=== PATIENT | male | born 1975 | race Caucasian/White ===

== ENCOUNTER 2016-11-18 21:20 | Observation (INO) | payer BC, OTHER ==
[~2016-11-18] VITALS: Ht 177.8 cm; Wt 86.4 kg
[~2016-11-18 21:20] MED LIST: ALBU1AER9 INH; ASPCH81X PO; METO25TA31 PO
[2016-11-18] MEDS ORDERED: SODIUM CHLORIDE 0.9% 500ML 500 ML IV STA (21:38)
[2016-11-18] MEDS ORDERED: OPTIRAY 320 IV PRN (21:45)
[2016-11-18 21:48] LABS: BASO % 0.2 %; BASO ABS # 0.02 K/uL (0-0.2); COMPLETE YES; EOS % 0.4 %; HEMATOCRIT 44.5 % (42-52); IG% 0.1 %; LYMPH % 14.2 %; LYMPH ABS # 1.34 K/uL (1.2-3.4); MEAN CELL VOLUME 84.8 fL (80-100); MEAN CORPUSCULAR HEMOGLOBIN 30.5 pg (25-34); MEAN PLATELET VOLUME 9.1 fL (7.4-10.4); MONO % 4.4 %; NEUT % 80.7 %; PLATELET COUNT 319 K/uL (130-400); RED BLOOD COUNT 5.25 M/uL (4.7-6.1); WHITE BLOOD COUNT 9.46 K/uL (4.8-10.8)
--- NOTE | 2016-11-18 21:50 | DIAGNOSTIC IMAGING REPORT ---
CHEST ONE VIEW PORTABLE CLINICAL HISTORY: Chest pain. Atrial fibrillation. COMPARISON STUDY: Chest radiograph March 01, 2010. FINDINGS: Lung volumes are at the lower limits of normal. There is no consolidation or evidence of pulmonary edema. No pneumothorax or pleural effusion is identified. Cardiac size is normal. Mediastinal contours are normal. IMPRESSION: No acute cardiopulmonary findings. Electronically signed by: Jorge Greene M.D. 11/18/2016 9:48 PM Dictated Date/Time: 11/18/2016 9:47 PM
[2016-11-18 21:55] LABS: ISTAT CREATININE 0.9 mg/dl (0.6-1.3); ISTAT HEMOGLOBIN 15.6 g/dl (14.0-18.0); ISTAT IONIZED CALCIUM 1.19 mmol/l (1.12-1.32)
[2016-11-18 21:56] LABS: PARTIAL THROMBOPLASTIN RATIO 1.1; PROTHROMBIN TIME (PATIENT) 10.6 SECONDS (9.0-12.0)
[2016-11-18 22:10] LABS: ALT/SGPT 39 U/L (12-78); BLOOD UREA NITROGEN 13 mg/dl (7-18); BUN/CREATININE RATIO 11.5 (10-20); CALCIUM 9.5 mg/dl (8.5-10.1); CARBON DIOXIDE 21 mmol/L (21-32); CHLORIDE 109 mmol/L (98-107); GLUCOSE 149 mg/dl (70-99); MAGNESIUM 2.2 mg/dl (1.8-2.4); POTASSIUM 3.5 mmol/L (3.5-5.1); SODIUM 142 mmol/L (136-145)
[2016-11-18] MEDS ORDERED: METO25TA56 PO (22:15)
[2016-11-18] MEDS ORDERED: VNTHFA/IN INH (22:15)
[2016-11-18 22:19] LABS: ALKALINE PHOSPHATASE 76 U/L (45-117); AST/SGOT 26 U/L (15-37); CKMB/CK RATIO 0.6 (0-3.0)
--- NOTE | 2016-11-18 22:21 | DIAGNOSTIC IMAGING REPORT ---
CT ANGIOGRAPHY OF THE CHEST, PULMONARY EMBOLUS PROTOCOL CLINICAL HISTORY: Shortness of breath and chest pain. Atrial fibrillation. COMPARISON STUDY: Chest radiograph March 01, 2010 and March. TECHNIQUE: Following IV administration of 87 mL of Optiray-320, helical axial images of the chest were obtained utilizing the pulmonary embolus protocol. Maximal intensity projections and sagittal and coronal reformats were viewed on an independent 3D workstation. IV contrast was administered without complication. CT DOSE: 543.85 mGy.cm FINDINGS: No pulmonary emboli are identified. The size of the heart is normal. There is no pericardial effusion. There is no evidence of thoracic aortic dissection. No enlarged thoracic lymph nodes are present. The central airways are patent. Mild ground glass opacities suggest atelectasis. There is no consolidation to suggest pneumonia. No pneumothorax or pleural effusion is present. The bony thorax and upper abdomen are unremarkable. IMPRESSION: 1. No pulmonary emboli identified. 2. No acute intrathoracic findings. Electronically signed by: Jorge Greene M.D. 11/18/2016 10:19 PM Dictated Date/Time: 11/18/2016 10:12 PM
--- NOTE | 2016-11-19 00:38 | EMERGENCY ROOM VISIT NOTE ---
History First contact with patient: 21:26 Chief Complaint: CARDIAC ASSESSMENT Stated Complaint: IN A-FIB Nursing Triage Summary: Pt reports he felt his heart racing after dinner. Pt has history of Afib and felt like he was in it. Pt took Metoprolol and ASA. History of Present Illness The patient is a 41 year old male who presents to the Emergency Room with complaints of chest pain, palpitations or shortness of breath for the past few hours. Patient took an extra metoprolol. His racing heart has subsided. No recent stress test or echocardiogram. No alcohol today. She describes the pain as pressure, 3-10 throughout the chest. He is only on a baby aspirin for his atrial fibrillation. Patient denies fever, chills, cough, congestion, abdominal pain, numbness, tingling. He had one episode of vomiting and diarrhea that was nonbloody nonblack and tarry in nature. Review of Systems See HPI for pertinent positives & negatives. A total of 10 systems reviewed and were otherwise negative. Past Medical/Surgical History Medical Problems: (1) HTN (hypertension) Atrial fibrillation Family History Cancer Gallbladder disease Heart disease Hypertension Lung disease Social History Smoking Status: Never Smoker Marital Status: Housing Status: lives with significant other Occupation Status: employed Current/Historical Medications Scheduled Aspirin (Aspirin Chewable), 81 MG PO DAILY Metoprolol Tartrate (Lopressor) (Lopressor), 12.5 MG PO DAILY Scheduled PRN Albuterol Hfa (Ventolin Hfa), 22 PUFFS INH QID PRN for SOB/Wheezing Allergies Coded Allergies: Clindamycin (Verified Allergy, Severe, throat swelling, 09/04/16) Penicillins (Verified Allergy, Mild, UNKNOWN, 02/28/12) Sulfites (Unverified Allergy, Unknown, RASH, 09/04/16) Physical Exam Vital Signs Date Time Temp Pulse Resp B/P Pulse Ox O2 Delivery O2 Flow Rate FiO2 11/19/16 00:00 60 16 134/84 97 Room Air 11/18/16 22:43 71 16 122/84 94 Room Air 11/18/16 21:48 95 Room Air 11/18/16 21:40 96 11/18/16 21:33 95 Room Air 11/18/16 21:32 93 16 159/96 95 Room Air 11/18/16 21:30 95 Room Air 11/18/16 21:22 36.9 120 21 166/92 97 Room Air Physical Exam VITALS: Vitals are noted on the nurse's note and reviewed by myself. Vital signs stable. GENERAL: Pleasant male, in no acute distress, nondiaphoretic, well-developed well-nourished. SKIN: The skin was without rashes, erythema, edema, or bruising. There is no tenting of the skin. Capillary reflex less than 2 seconds. HEAD: Normocephalic atraumatic. EARS: External auditory canals clear, tympanic membranes pearly dee without erythema or effusion bilaterally. EYES: Pupils equal round and reactive to light and accommodation. Conjunctivae without injection, sclerae without icterus. Extraocular movements intact. NOSE: Patent, turbinates without inflammation or discharge. MOUTH: Mucous membranes moist. Pharynx without erythema or exudate. Uvula midline. Airway patent. Tongue does not deviate. NECK: Supple without nuchal rigidity. No lymphadenopathy. No thyromegaly. Cervical spine is nontender. No JVD. HEART: Regular rate and rhythm without murmurs gallops or rubs. LUNGS: Clear to auscultation bilaterally without wheezes, rales or rhonchi. No dullness to percussion. No retractions or accessory muscle use. ABDOMEN: Positive bowel sounds x 4. Normal tympanic percussion. Soft, nontender, without masses or organomegaly. Mancini sign negative. No guarding or rebound tenderness. MUSCULOSKELETAL: No muscle atrophy, erythema, or edema noted. NEURO: Patient was alert and oriented to person place and time. Normal sensation to light and sharp touch. No focal neurological deficits. Medical Decision & Procedures Laboratory Results 11/18/16 21:35 Red Blood Count 5.25, Mean Corpuscular Volume 84.8, Mean Corpuscular Hemoglobin 30.5, Mean Corpuscular Hemoglobin Concent 36.0, Mean Platelet Volume 9.1, Neutrophils (%) (Auto) 80.7, Lymphocytes (%) (Auto) 14.2, Monocytes (%) (Auto) 4.4, Eosinophils (%) (Auto) 0.4, Basophils (%) (Auto) 0.2, Neutrophils # (Auto) 7.63, Lymphocytes # (Auto) 1.34, Monocytes # (Auto) 0.42, Eosinophils # (Auto) 0.04, Basophils # (Auto) 0.02 11/18/16 21:35 Test 11/18/16 21:35 11/18/16 21:43 11/18/16 21:44 11/18/16 23:08 White Blood Count 9.46 K/uL (4.8-10.8) Red Blood Count 5.25 M/uL (4.7-6.1) Hemoglobin 16.0 g/dL (14.0-18.0) Hematocrit 44.5 % (42-52) Mean Corpuscular Volume 84.8 fL (80-100) Mean Corpuscular Hemoglobin 30.5 pg (25-34) Mean Corpuscular Hemoglobin Concent 36.0 g/dl (32-36) Platelet Count 319 K/uL (130-400) Mean Platelet Volume 9.1 fL (7.4-10.4) Neutrophils (%) (Auto) 80.7 % Lymphocytes (%) (Auto) 14.2 % Monocytes (%) (Auto) 4.4 % Eosinophils (%) (Auto) 0.4 % Basophils (%) (Auto) 0.2 % Neutrophils # (Auto) 7.63 K/uL (1.4-6.5) Lymphocytes # (Auto) 1.34 K/uL (1.2-3.4) Monocytes # (Auto) 0.42 K/uL (0.11-0.59) Eosinophils # (Auto) 0.04 K/uL (0-0.5) Basophils # (Auto) 0.02 K/uL (0-0.2) RDW Standard Deviation 39.0 fL (36.4-46.3) RDW Coefficient of Variation 12.7 % (11.5-14.5) Immature Granulocyte % (Auto) 0.1 % Immature Granulocyte # (Auto) 0.01 K/uL (0.00-0.02) Prothrombin Time 10.6 SECONDS (9.0-12.0) Prothromb Time International Ratio 1.0 (0.9-1.1) Activated Partial Thromboplast Time 28.5 SECONDS (21.0-31.0) Partial Thromboplastin Ratio 1.1 Est Creatinine Clear Calc Drug Dose 91.3 ml/min Estimated GFR () 96.1 Estimated GFR (Non- 82.9 BUN/Creatinine Ratio 11.5 (10-20) Calcium Level 9.5 mg/dl (8.5-10.1) Magnesium Level 2.2 mg/dl (1.8-2.4) Total Bilirubin 0.2 mg/dl (0.2-1) Direct Bilirubin < 0.1 mg/dl (0-0.2) Aspartate Amino Transf (AST/SGOT) 26 U/L (15-37) Alanine Aminotransferase (ALT/SGPT) 39 U/L (12-78) Alkaline Phosphatase 76 U/L (45-117) Total Creatine Kinase 101 U/L (39-308) Creatine Kinase MB 0.6 ng/ml (0.5-3.6) Creatine Kinase MB Ratio 0.6 (0-3.0) Total Protein 7.5 gm/dl (6.4-8.2) Albumin 4.6 gm/dl (3.4-5.0) Lipase 189 U/L (73-393) Thyroid Stimulating Hormone (TSH) 2.860 uIu/ml (0.300-4.500) Bedside D-Dimer 40 ng/mlFEU (0-450) Bedside Troponin I 0.000 ng/ml (0-0.045) Bedside Hemoglobin 15.6 g/dl (14.0-18.0) Bedside Hematocrit 46 % (42-52) Bedside Sodium 142 mEq/L (135-144) Bedside Potassium 3.5 mEq/L (3.3-5.0) Bedside Chloride 106 mEq/L (101-112) Bedside Total CO2 22 mEq/l (24-31) Anion Gap 18.0 mmol/L (16-25) Bedside Blood Urea Nitrogen 14 mg/dl (7-18) Bedside Creatinine 0.9 mg/dl (0.6-1.3) Bedside Glucose (other) 152 mg/dl (70-99) Bedside Ionized Calcium (Nova) 1.19 mmol/l (1.12-1.32) Medications Administered Medications (Trade) Dose Ordered Sig/Sachi Route Start Time Stop Time Status Last Admin Dose Admin Sodium Chloride (Nss 500ml) 500 ml @ 999 mls/hr Q31M STAT IV 11/18/16 21:38 11/18/16 22:08 DC 11/18/16 21:47 999 MLS/HR ED Course Prior records and ancillary studies reviewed in the EMR. Additional history obtained from []. Prior records/ancillary studies reviewed. Triage Nursing notes reviewed. Additional history obtained from family. The patient's history was concerning for chest pain. Differential diagnosis: Etiologies such as cardiac ischemia, aortic dissection, pulmonary embolism, pneumonia, pneumothorax, musculoskeletal, infections, pericarditis, myocarditis , esophageal rupture, gastrointestinal, as well as others were entertained. Physical examination: As above. ER treatment provided: IV fluids On reassessment the patient felt better. Diagnostic interpretation by me: The electrocardiogram was normal sinus, normal intervals, minimal ST depression in V3 and V4, normal axis, impression normal sinus rhythm with minimal ST depression in the anteroseptal leads interpreted by myself repeat EKG shows normal sinus interpreted by myself The labs revealed negative troponin. No leukocytosis Imaging studies: Chest x-ray as above CT ANGIOGRAPHY OF THE CHEST, PULMONARY EMBOLUS PROTOCOL CLINICAL HISTORY: Shortness of breath and chest pain. Atrial fibrillation. COMPARISON STUDY: Chest radiograph March 01, 2010 and March or 2016. TECHNIQUE: Following IV administration of 87 mL of Optiray-320, helical axial images of the chest were obtained utilizing the pulmonary embolus protocol. Maximal intensity projections and sagittal and coronal reformats were viewed on an independent 3D workstation. IV contrast was administered without complication. CT DOSE: 543.85 mGy.cm FINDINGS: No pulmonary emboli are identified. The size of the heart is normal. There is no pericardial effusion. There is no evidence of thoracic aortic dissection. No enlarged thoracic lymph nodes are present. The central airways are patent. Mild ground glass opacities suggest atelectasis. There is no consolidation to suggest pneumonia. No pneumothorax or pleural effusion is present. The bony thorax and upper abdomen are unremarkable. IMPRESSION: 1. No pulmonary emboli identified. 2. No acute intrathoracic findings. Electronically signed by: Jorge Greene M.D. 11/18/2016 10:19 PM Consultation: A consultation was placed with the hospitalist, Dr Gomes. The case was discussed and diagnostics were reviewed. The patient was evaluated in the ER for further treatment. Exam and history seem consistent with precordial chest pain with abnormal EKG. Patient will be evaluated by medicine for further evaluation and workup for his cardiac symptoms today. Negative CTA. Initial heart rate was 120 and then improved while in the ER without intervention. Negative troponin. Stable H&H. No leukocytosis. By the evaluation outlined above emergent etiologies such as aortic dissection , pulmonary embolism, pneumonia, pneumothorax, infections, pericarditis, myocarditis, gastrointestinal, as well as others were deemed relatively unlikely. The pt informed about the findings as listed above. All questions were answered and pleased with the treatment. case reviewed with my Attending Medical Decision As above Impression Primary Impression: Precordial chest pain Departure Information Dispostion Being Evaluated By Hospitalist Condition FAIR Referrals Santos Key M.D. (PCP) Patient Instructions My [facility]
[2016-11-19] MEDS ORDERED: LEVALBUTEROL/IPRATROPIUM NEB INH PRN (01:15)
[2016-11-19] MEDS ORDERED: ACETAMINOPHEN 325 MG TAB PO PRN (01:15)
[2016-11-19] MEDS ORDERED: NITROGLYCERIN 0.4 MG SL PER TAB CHARGE SL PRN (01:15)
[2016-11-19] MEDS ORDERED: ONDANSETRON INJ 2 MG/ML 2 ML VIAL IV PRN (01:15)
[2016-11-19] MEDS ORDERED: TRAMADOL HCL 50 MG TAB PO PRN (01:15)
[2016-11-19 01:30] VITALS: BP 126/80; PULSE 62; TEMP 36.7; O2SAT 95; Ht 177.8 cm; Wt 86.4 kg
[2016-11-19] MEDS ORDERED: LORAZEPAM 2 MG/ML 1 ML VIAL IV PRN (01:30)
[2016-11-19] MEDS ORDERED: METOPROLOL TARTRATE 25 MG TAB PO STA (01:37)
[2016-11-19] MEDS ORDERED: DOXYCYCLINE HYCLATE 100 MG CAP PO STA (01:38)
[2016-11-19] MEDS ORDERED: POTASSIUM CHLORIDE 10 MEQ TABCR PO STA (01:39)
[2016-11-19] MEDS ORDERED: IV FLUIDS COMPLETED PRN (01:45)
[2016-11-19] MEDS ORDERED: LACTATED RINGER'S 1000ML 1,000 ML IV ONE (02:00)
[2016-11-19] MEDS ORDERED: IPRATROPIUM BROMIDE NEB SOLN 0.02% 2.5 ML VIAL INH PRN (02:30)
[2016-11-19] MEDS ORDERED: LEVALBUTEROL 1.25MG/0.5ML NEB INH PRN (02:30)
[2016-11-19 04:41] VITALS: BP 114/70; PULSE 64; TEMP 36.8; O2SAT 96
[2016-11-19 05:00] VITALS: O2SAT 96
--- NOTE | 2016-11-19 05:29 | HISTORY & PHYSICAL EXAMINATION ---
DATE OF ADMISSION: 11/19/2016 PRIMARY CARE PHYSICIAN: Dr. Key. CHIEF COMPLAINT: Chest pressure, palpitations, "I think I was in AFib." HISTORY OF PRESENT ILLNESS: Medical history significant for PAFib, restless legs syndrome, reflux esophagitis as per records. Recent confinement March 2010 for paroxysmal AFib. Patient had spontaneous conversation. Subsequently discharged. Recommendation was aspirin for thromboembolic prevention, continuation of b.i.d. metoprolol; flecainide p.r.n. Patient has been taking metoprolol just once daily for years claiming that he would feel very tired if he took med at prescribed BID dosing. Last episode of palpitations, poss AFib was about 2 years ago while inside a vehicle. Spontaneously resolving. Patient was having dinner last night, cheese sandwich, when he developed pounding heartbeat, palpitations likely AFib, irregular and chest pressure, nonradiating. Patient also noted both arms feeling heavy. Patient also admits to nasal congestion, cough symptoms, productive of yellow sputum, admits to some sick contacts. No fever, no chills, no shortness of breath. No OTC decongestant intake. Denies inordinate ETOH/caffeine consumption. No unusual stress at home. At the Emergency Room, the patient initially noted to be tachycardic . Heart rate and symptoms eventually settled down. Patient currently asymptomatic. MEDICAL HISTORY: As above. SURGERIES: None. HOME MEDICATIONS: Include metoprolol once a day, aspirin, albuterol p.r.n. ALLERGIES: ALLERGIC TO CLINDAMYCIN, PENICILLIN, SULFITE. FAMILY HISTORY: Heart disease. PERSONAL AND SOCIAL HISTORY: Nonsmoker, no chronic intake of alcohol. He is a [employer] officer. REVIEW OF SYSTEMS: As per HPI. all other ROS negative. PHYSICAL EXAMINATION: VITAL SIGNS: Blood pressure was noted to be 166/92, later 120/84, pulse rate 120, later 90, RR 20, T 37 O2 98RA. GENERAL: slightly anxious, no resp distress SKIN: Normal color. HEENT: Alopecia. [place] palpebral conjunctivae. Dry mucosa. NECK: No JVD. supple CHEST: Clear to auscultation. HEART: Regular rate and rhythm. ABDOMEN: Soft. EXTREMITIES: No edema, nontender. NEUROLOGIC: No gross focality. LABS: Hemoglobin was noted to be 16, WBC 9.4, Sodium 140, potassium 3.5, chloride 109, CO2 of 21, BUN 30, creatinine 1.1, glucose 149. trop 0 CT head, no acute pathology. CT thorax, no PE. EKG, normal sinus rhythm, no ischemia. ASSESSMENT: Chest pressure, palpitations possible recurrent atrial fibrillation. Patient consistently in normal sinus rhythm in the ER noncompliance with prescribed BID of Lopressor for years as possible precipitant other poss contributory factors : complicated URTI, low normal potassium PLAN: Observation PCU, tele. Patient willing to try BID dosing of Lopressor 2D echo, Cardio consult RE chest pressure, palpitations Additional potassium Doxycycline for complicated URTI continue ASA for thromboembolic prevention. DVT prophylaxis, SCDs Full code. MTDD
[2016-11-19 06:34] LABS: BLOOD UREA NITROGEN 12 mg/dl (7-18); BUN/CREATININE RATIO 13.5 (10-20); CALCIUM 8.5 mg/dl (8.5-10.1); CARBON DIOXIDE 24 mmol/L (21-32); CHLORIDE 112 mmol/L (98-107); CREATININE 0.92 mg/dl (0.60-1.40); GLUCOSE 100 mg/dl (70-99); POTASSIUM 4.1 mmol/L (3.5-5.1); SODIUM 143 mmol/L (136-145)
--- NOTE | 2016-11-19 07:26 | DIAGNOSTIC IMAGING REPORT ---
CT HEAD WITHOUT CONTRAST (CT) CLINICAL HISTORY: Bilateral arm weakness. Atrial fibrillation. COMPARISON STUDY: 03-09 TECHNIQUE: Axial CT of the brain is performed from the vertex to the skull base. IV contrast was not administered for this examination. CT DOSE: 614.27 mGy.cm FINDINGS: No intra or extra-axial mass lesions are visualized. There is no CT evidence of acute cortical infarction. There is no evidence of midline shift. There is no acute hemorrhage. No calvarial fractures are visualized. There is no evidence of pathologic ventricular dilatation. There is no evidence of acute sinusitis IMPRESSION: No acute intracranial findings Electronically signed by: Phiilp Lindo M.D. 11/19/2016 7:25 AM Dictated Date/Time: 11/19/2016 7:24 AM
[2016-11-19 07:31] VITALS: BP 109/67; PULSE 61; TEMP 36.7; O2SAT 97
--- NOTE | 2016-11-19 08:37 | ECHOCARDIOGRAM REPORT ---
*NOTICE TO RECEIVING [employer]Y This information is strictly Confidential and protected under [place] law. [place] law prohibits you from making any further disclosure of this information unless further disclosure is expressly permitted by the written consent of the person to whom it pertains or is authorized by law. A general authorization for the release of medical or other information is not sufficient for this purpose. Hospital accepts no responsibility if the information is made available to any other person, INCLUDING THE PATIENT. Interpretation Summary * Conclusions -- * The left ventricle is normal in size. * There is mild concentric left ventricular hypertrophy. * Left ventricular systolic function is normal. * The left ventricular wall motion is normal. * Ejection Fraction = 55-60%. Procedure Details * A complete two-dimensional transthoracic echocardiogram was performed (2D, M-mode, Doppler and color flow Doppler). Left Ventricle * The left ventricle is normal in size. * There is mild concentric left ventricular hypertrophy. * Left ventricular systolic function is normal. * Ejection Fraction = 55-60%. * The left ventricular wall motion is normal. Right Ventricle * The right ventricle is normal in size and function. Atria * The left atrial size is normal. * Right atrial size is normal. * No ASD detected; PFO is not assessed. Mitral Valve * The mitral valve anatomy is normal. * There is no mitral valve stenosis. * Significant mitral regurgitation is absent. Tricuspid Valve * The tricuspid valve anatomy is normal. * There is no tricuspid stenosis. * There is trace tricuspid regurgitation. * Doppler findings do not suggest pulmonary hypertension. Aortic Valve * The aortic valve is trileaflet. * No hemodynamically significant valvular aortic stenosis. * No aortic regurgitation is present. Pulmonic Valve * The pulmonic valve is not well visualized. Great Vessels * The aortic root is normal size. Pericardium/Pleural * There is no pericardial effusion. Great Vessels * Normal inferior vena cava diameter and respiratory variation suggests normal central venous pressure. MMode 2D Measurements and Calculations IVSd 1.1 cm LVIDd 4.5 cm LVIDs 3.2 cm LVPWd 0.90 cm IVS/LVPW 1.3 FS 27.9 % EDV(Teich) 92.1 ml ESV(Teich) 42.2 ml EF(Teich) 54.2 % EDV(cubed) 90.7 ml ESV(cubed) 34.0 ml EF(cubed) 62.5 % LV mass(C)d 156.0 grams LV mass(C)dI 76.6 grams/m\S\2 CO(Teich) 2.8 l/min CI(Teich) 1.4 l/min/m\S\2 SV(Teich) 49.9 ml SI(Teich) 24.5 ml/m\S\2 CO(cubed) 3.2 l/min CI(cubed) 1.6 l/min/m\S\2 SV(cubed) 56.7 ml SI(cubed) 27.8 ml/m\S\2 Ao root diam 3.1 cm Ao root area 7.7 cm\S\2 ACS 1.7 cm LA dimension 3.2 cm asc Aorta Diam 2.6 cm LA/Ao 1.0 LVOT diam 2.0 cm LVOT area 3.1 cm\S\2 LVAd ap4 26.9 cm\S\2 LVLd ap4 7.6 cm EDV(MOD-sp4) 77.9 ml LVAs ap4 15.2 cm\S\2 LVLs ap4 5.7 cm ESV(MOD-sp4) 33.8 ml EF(MOD-sp4) 56.6 % LVAd ap2 22.9 cm\S\2 LVLd ap2 7.9 cm EDV(MOD-sp2) 56.3 ml LVAs ap2 13.5 cm\S\2 LVLs ap2 6.7 cm ESV(MOD-sp2) 24.3 ml EF(MOD-sp2) 56.8 % CO(MOD-sp4) 2.5 l/min CI(MOD-sp4) 1.2 l/min/m\S\2 SV(MOD-sp4) 44.1 ml SI(MOD-sp4) 21.6 ml/m\S\2 CO(MOD-sp2) 1.8 l/min CI(MOD-sp2) 0.88 l/min/m\S\2 SV(MOD-sp2) 32.0 ml SI(MOD-sp2) 15.7 ml/m\S\2 Doppler Measurements and Calculations MV E max kayli 83.4 cm/sec MV A max kayli 50.4 cm/sec MV E/A 1.7 MV dec time 0.21 sec Ao V2 max 131.5 cm/sec Ao max PG 6.9 mmHg Ao max PG (full) 1.3 mmHg CHIDI(V,A) 2.8 cm\S\2 CHIDI(V,D) 2.8 cm\S\2 LV V1 max PG 5.6 mmHg LV V1 max 118.4 cm/sec PA V2 max 114.0 cm/sec PA max PG 5.2 mmHg PA acc slope 325.1 cm/sec\S\2 PA acc time 0.18 sec TR max kayli 225.0 cm/sec PA pr(Accel) -0.22 mmHg
--- NOTE | 2016-11-19 08:47 | Progress Note ---
Subjective Date of Service: Nov 19, 2016. Subjective Pt evaluation today including: conversation w/ patient, physical exam, lab review, review of studies, review of inpatient medication list Saw/examined the patient in room 285 Doing well this morning States he was not taking his medications at home as prescribed No chest pain or palpitations overnight and this morning Problem List Medical Problems: (1) Precordial chest pain Status: Acute Review of Systems Constitutional: No chills, No fever Respiratory: No cough, No shortness of breath, No sputum Cardiac: No chest pain, No edema, No palpitations Abdomen: No diarrhea, No nausea, No pain, No vomiting Medications Current Inpatient Medications Medications (Trade) Dose Ordered Sig/Sachi Route Start Time Stop Time Status Last Admin Dose Admin Ioversol (Optiray 320) 100 ml UD PRN IV 11/18/16 21:45 11/22/16 21:44 Doxycycline Hyclate 100 mg 100 mg BID PO 11/19/16 21:00 11/29/16 20:59 Lactated Ringer's (Lr 1000ml) 1,000 ml @ 75 mls/hr [id number] ONCE IV 11/19/16 02:00 11/19/16 15:19 11/19/16 02:38 75 MLS/HR Aspirin (Ecotrin Tab) 81 mg QAM PO 11/19/16 09:00 12/19/16 08:59 11/19/16 08:26 81 MG Metoprolol Tartrate (Lopressor Tab) 12.5 mg BID PO 11/19/16 09:00 12/19/16 08:59 11/19/16 08:27 12.5 MG Ondansetron HCl (Zofran Inj) 4 mg Q6H PRN IV 11/19/16 01:15 12/19/16 01:14 Tramadol HCl (Ultram Tab) 25 mg Q6H PRN PO 11/19/16 01:15 12/19/16 01:14 Acetaminophen (Tylenol Tab) 650 mg Q4H PRN PO 11/19/16 01:15 12/19/16 01:14 Nitroglycerin (Nitrostat Tab) 0.4 mg UD PRN SL 11/19/16 01:15 12/19/16 01:14 Lorazepam (Ativan Inj) 0.5 mg Q4H PRN IV 11/19/16 01:30 12/19/16 01:29 Miscellaneous (Iv Fluids Completed) 1 ea PRN PRN N/A 11/19/16 01:45 11/19/17 01:44 Ipratropium [place] (Atrovent 0.02% 0.5MG/2.5ML Neb) 0.5 mg Q4H PRN INH 11/19/16 02:30 12/19/16 02:29 Levalbuterol (Xopenex 1.25MG/ 0.5ML Neb) 1.25 mg Q4H PRN INH 11/19/16 02:30 12/19/16 02:29 Objective Vital Signs Date Time Temp Pulse Resp B/P Pulse Ox O2 Delivery O2 Flow Rate FiO2 11/19/16 07:31 36.7 61 16 109/67 97 Room Air 11/19/16 05:00 96 Room Air 11/19/16 04:41 36.8 64 18 114/70 96 Room Air 11/19/16 01:30 36.7 62 16 126/80 95 Room Air 11/19/16 01:11 74 16 125/78 95 Room Air 11/19/16 00:00 60 16 134/84 97 Room Air 11/18/16 22:43 71 16 122/84 94 Room Air 11/18/16 21:48 95 Room Air 11/18/16 21:40 96 11/18/16 21:33 95 Room Air 11/18/16 21:32 93 16 159/96 95 Room Air 11/18/16 21:30 95 Room Air 11/18/16 21:22 36.9 120 21 166/92 97 Room Air Physical Exam General Appearance: no apparent distress Respiratory/Chest: lungs clear, normal breath sounds, no respiratory distress, no accessory muscle use Cardiovascular: regular rate, rhythm, no edema, no murmur Abdomen: normal bowel sounds, non tender, soft Extremities: normal inspection, no pedal edema Neurologic/Psychiatric: no motor/sensory deficits, alert, normal mood/affect Skin: normal color Lymphatic: no adenopathy Laboratory Results Last 24 Hours Test 11/18/16 21:35 11/18/16 21:43 11/18/16 21:44 11/19/16 05:32 White Blood Count 9.46 K/uL Red Blood Count 5.25 M/uL Hemoglobin 16.0 g/dL Hematocrit 44.5 % Mean Corpuscular Volume 84.8 fL Mean Corpuscular Hemoglobin 30.5 pg Mean Corpuscular Hemoglobin Concent 36.0 g/dl Platelet Count 319 K/uL Mean Platelet Volume 9.1 fL Neutrophils (%) (Auto) 80.7 % Lymphocytes (%) (Auto) 14.2 % Monocytes (%) (Auto) 4.4 % Eosinophils (%) (Auto) 0.4 % Basophils (%) (Auto) 0.2 % Neutrophils # (Auto) 7.63 K/uL Lymphocytes # (Auto) 1.34 K/uL Monocytes # (Auto) 0.42 K/uL Eosinophils # (Auto) 0.04 K/uL Basophils # (Auto) 0.02 K/uL RDW Standard Deviation 39.0 fL RDW Coefficient of Variation 12.7 % Immature Granulocyte % (Auto) 0.1 % Immature Granulocyte # (Auto) 0.01 K/uL Prothrombin Time 10.6 SECONDS Prothromb Time International Ratio 1.0 Activated Partial Thromboplast Time 28.5 SECONDS Partial Thromboplastin Ratio 1.1 Sodium Level 142 mmol/L 143 mmol/L Potassium Level 3.5 mmol/L 4.1 mmol/L Chloride Level 109 mmol/L 112 mmol/L Carbon Dioxide Level 21 mmol/L 24 mmol/L Anion Gap 12.0 mmol/L 18.0 mmol/L 7.0 mmol/L Blood Urea Nitrogen 13 mg/dl 12 mg/dl Creatinine 1.10 mg/dl 0.92 mg/dl Est Creatinine Clear Calc Drug Dose 91.3 ml/min 109.1 ml/min Estimated GFR () 96.1 119.3 Estimated GFR (Non- 82.9 102.9 BUN/Creatinine Ratio 11.5 13.5 Random Glucose 149 mg/dl 100 mg/dl Calcium Level 9.5 mg/dl 8.5 mg/dl Magnesium Level 2.2 mg/dl Total Bilirubin 0.2 mg/dl Direct Bilirubin < 0.1 mg/dl Aspartate Amino Transf (AST/SGOT) 26 U/L Alanine Aminotransferase (ALT/SGPT) 39 U/L Alkaline Phosphatase 76 U/L Total Creatine Kinase 101 U/L Creatine Kinase MB 0.6 ng/ml Creatine Kinase MB Ratio 0.6 Total Protein 7.5 gm/dl Albumin 4.6 gm/dl Lipase 189 U/L Thyroid Stimulating Hormone (TSH) 2.860 uIu/ml Bedside D-Dimer 40 ng/mlFEU Bedside Troponin I 0.000 ng/ml Bedside Hemoglobin 15.6 g/dl Bedside Hematocrit 46 % Bedside Sodium 142 mEq/L Bedside Potassium 3.5 mEq/L Bedside Chloride 106 mEq/L Bedside Total CO2 22 mEq/l Bedside Blood Urea Nitrogen 14 mg/dl Bedside Creatinine 0.9 mg/dl Bedside Glucose (other) 152 mg/dl Bedside Ionized Calcium (Nova) 1.19 mmol/l Troponin I < 0.015 ng/ml Assessment and Plan This is a 41 year old male with PMH of paroxysmal atrial fibrillation, restless leg syndrome presents with palpitations similar to his episodes of atrial fibrillation Paroxysmal Atrial Fibrillation * patient has a history of this * upon presentation has been in NSR with controlled rate * supposed to be taking metoprolol 12.5mg BID, only takes it once daily due to side effects * echo noted - no significant findings, mild LVH, normal LVEF * cardiology consulted for further input; possibly transition to Toprol XL due to compliance issues * CHADS2 score = 0; uses aspirin 81mg daily DVT ppx * SCDs FULL CODE observation status - d/c home when okay with cardiology
[2016-11-19] MEDS ORDERED: ASPIRIN 81 MG ECTAB PO SCH (09:00)
[2016-11-19] MEDS ORDERED: METOPROLOL TARTRATE 25 MG TAB PO SCH (09:00)
[2016-11-19] MEDS ORDERED: TPRSR25 PO (11:22)
--- NOTE | 2016-11-19 11:24 | Discharge Instructions ---
Discharge Instructions Admission Reason for Admission: Precordial Chest Pain Discharge Discharge Diagnosis / Problem: Chest pain; likely A. fib Discharge Goals Goal(s): Decrease discomfort, Improve function Activity Recommendations Activity Limitations: resume your previous activity . Instructions / Follow-Up Instructions / Follow-Up Please follow up with cardiology - you will get a phone call with date and time for this appointment * stop taking metoprolol tartrate - you will be prescribed metoprolol succinate , which you just have to take once daily * Take aspirin 81mg daily Current Hospital Diet Patient's current hospital diet: AHA Diet (Heart Healthy) Discharge Diet Recommended Diet: AHA Diet (Heart Healthy) Pending Studies Studies pending at discharge: no Laboratory Results Hemoglobin A1c Test 11/18/16 21:35 Range/Units Medical Emergencies . Who to Call and When: Medical Emergencies: If at any time you feel your situation is an emergency, please call 911 immediately. . Non-Emergent Contact Non-Emergency issues call your: Primary Care Provider . . "Provider Documentation" section prepared by Rex Barboza. VTE Core Measure Inpt VTE Proph given/why not?: SCD's
--- NOTE | 2016-11-19 11:26 | Discharge Summary ---
Discharge Summary Admission Date: Nov 19, 2016 at 00:49 Discharge Date: Nov 19, 2016 Discharge Disposition: Home Principal Diagnosis: Chest pain, likely palpitations from A. Fib episode Medication Reconciliation New Medications: Metoprolol Succinate (Metoprolol Succinate ER) 25 Mg Tabcr 12.5 MG PO DAILY for 90 Days, #45 TABS Continued Medications: Albuterol Hfa (Ventolin Hfa) 200 Puffs/63730 Mcg Aers 22 PUFFS INH QID PRN for SOB/Wheezing, #1 INHALER Aspirin (Aspirin Chewable) 81 Mg Chew 81 MG PO DAILY Discontinued Medications: Metoprolol Tartrate (Lopressor) (Lopressor) 25 Mg Tab 12.5 MG PO DAILY, TAB Admission Information HPI (per Admitting provider): DATE OF ADMISSION: 11/19/2016 PRIMARY CARE PHYSICIAN: Dr. Key. CHIEF COMPLAINT: Chest pressure, palpitations, "I think I was in AFib." HISTORY OF PRESENT ILLNESS: Medical history significant for concern for AFib, restless legs syndrome, reflux esophagitis as per records. Recent confinement March 2010 for paroxysmal AFib. The patient had spontaneous conversation and subsequently discharged. Recommendation was aspirin for thromboembolic prevention, continuation of b.i.d. metoprolol, flecainide p.r.n. The patient has been taking metoprolol just once daily claiming that he would feel very tired if he took it twice a day. Last episode of palpitations, AFib was about 2 years ago while inside a vehicle. The patient was having dinner last night, cheese sandwich, when he developed pounding heartbeat, palpitations likely AFib, irregular and chest pressure, nonradiating. The patient also admits to nasal congestion, cough symptoms, productive of yellow sputum, admits to some sick contacts, no fever, no chills, no shortness of breath. At the Emergency Room, the patient initially noted to be tachycardic ____. Heart rate did settle down. The patient currently asymptomatic. MEDICAL HISTORY: As above. SURGERIES: None. HOME MEDICATIONS: Include metoprolol once a day, Topamax daily, aspirin, albuterol p.r.n. He denies ____. ALLERGIES: ALLERGIC TO CLINDAMYCIN, PENICILLIN, SULFITE____. FAMILY HISTORY: Heart disease. PERSONAL AND SOCIAL HISTORY: Nonsmoker, no chronic intake of alcohol. He is a foreign service officer. REVIEW OF SYSTEMS: As per HPI. Others negative. PHYSICAL EXAMINATION: VITAL SIGNS: Blood pressure was noted to be 166/92, later 120/84, pulse rate 120, later 90, RR 20, ____. GENERAL: ____. SKIN: Normal color. HEENT: Alopecia. [place] palpebral conjunctivae. Dry mucosa. NECK: No JVD. CHEST: Clear to auscultation. HEART: Regular rate and rhythm. ABDOMEN: Soft. EXTREMITIES: No edema, nontender. NEUROLOGIC: No gross focality. LABS: Hemoglobin was noted to be 6, hematocrit ____ 9.4, ____ 19. Sodium 140, potassium 3.5, chloride 109, CO2 of 21, BUN 30, creatinine 1.1, glucose 149. The patient also noted both arms feeling heavy. CT head, no acute pathology. CT thorax, no PE. EKG, normal sinus rhythm, no ischemia. ASSESSMENT: Chest pressure, palpitations possible recurrent atrial fibrillation. Patient consistently in normal sinus rhythm in the ER noncompliance with prescribed BID of Lopressor for years as possible precipitant other poss contributory factors : complicated URTI, low normal potassium PLAN: Observation PCU, tele. Patient willing to try BID dosing of Lopressor 2D echo, Cardio consult RE chest pressure, palpitations Additional potassium Doxycycline for complicated URTI continue ASA for thromboembolic prevention. DVT prophylaxis, SCDs Full code. Hospital Course This is a 41 year old male with PMH of paroxysmal atrial fibrillation, restless leg syndrome presents with palpitations similar to his episodes of atrial fibrillation Paroxysmal Atrial Fibrillation * patient has a history of this * upon presentation has been in NSR with controlled rate * supposed to be taking metoprolol 12.5mg BID, only takes it once daily due to side effects * echo noted - no significant findings, mild LVH, normal LVEF * cardiology consulted for further input; possibly transition to Toprol XL due to compliance issues * CHADS2 score = 0; uses aspirin 81mg daily DVT ppx * SCDs FULL CODE observation status - d/c home when okay with cardiology Total time spent on discharge = 20 minutes This includes examination of the patient, discharge planning, medication reconciliation, and communication with other providers. Discharge Instructions Please follow up with cardiology - you will get a phone call with date and time for this appointment * stop taking metoprolol tartrate - you will be prescribed metoprolol succinate , which you just have to take once daily * Take aspirin 81mg daily
[2016-11-19 11:44] VITALS: BP 110/69; PULSE 118; TEMP 36.7; O2SAT 93
[2016-11-19 12:03] VITALS: BP 110/69; PULSE 61; TEMP 36.7; O2SAT 93
--- NOTE | 2016-11-19 15:35 | CARDIOLOGY CONSULTATION ---
DATE OF CONSULTATION: 11/19/2016 REFERRING PHYSICIAN: Dr. Barboza. PRIMARY CARE PHYSICIAN: Dr. Key. PRIMARY WRAPPER SIZER: Dr. Angelo. HISTORY OF PRESENT ILLNESS: The patient is a 41-year-old male whose history is notable for past paroxysmal atrial fibrillation well documented, though no recent episodes in the past several years, history of restless legs syndrome and reflux esophagitis. The patient presented this admission noting sense of tachypalpitations consistent past atrial fibrillation with associated chest pressure after eating a meal the night prior. Had been recently treated for a sinus tachycardia infection. Had not been taking beta chemo as previously is prescribed recently. Currently, denies any fevers, chills. Notes no history of TIA or stroke. Notes no history of chest pain, worsening shortness of breath, orthopnea, PND or peripheral edema. Appetite and weight have been stable. Notes no change in exercise capacity or tolerance. REVIEW OF SYSTEMS: Otherwise negative. ALLERGIES: NOTED TO BE CLINDAMYCIN, PENICILLIN, AND SULFITES. MEDICATIONS PRIOR TO HOSPITALIZATION: Albuterol inhaler, aspirin 81 mg per day and metoprolol tartrate 12.5 mg once per day and sporadic. PAST SURGICAL HISTORY: None. FAMILY HISTORY: Positive for heart disease but not in premature age. SOCIAL HISTORY: The patient is major gifts officer. He is a nonsmoker, rare alcohol user. PHYSICAL EXAMINATION: GENERAL: The patient is a pleasant, age appropriate male, in no acute distress. VITAL SIGNS: Reveal heart rate of 61, blood pressure is 109/67, O2 saturation is 97% on room air. HEENT: Normocephalic, atraumatic. Nares without discharge. Throat was clear. NECK: Supple without thyromegaly, lymphadenopathy, JVD or bruit. LUNGS: Clear to auscultation. CARDIOVASCULAR: Regular, normal S1, S2. There is no murmur, gallop or rub. ABDOMEN: Soft, nontender. EXTREMITIES: Without cyanosis or clubbing. There is no peripheral edema. LABORATORY DATA: Telemetry reveals sinus with atrial ectopy, initial rhythm on presentation revealed sinus tachycardia. Echocardiogram demonstrates normal structural heart, and borderline increased left ventricle wall thickness. LABORATORY STUDIES: White cell count is 9.4, hemoglobin is 16.0. Sodium is 143, potassium is 4.1, chloride is 112, bicarbonate is 24, BUN is 12, and creatinine 0.92. Troponins are negative. TSH was 2.8. Cardiac enzymes were normal. IMPRESSION: A 41-year-old male who carries a history of paroxysmal atrial fibrillation with initial diagnosis in 2009, presents now after a sense of tachypalpitations at rest. Extensive evaluations on admission have demonstrated no acute onset cause and left ventricular systolic function was normal. He has remained in sinus rhythm since presentation. RECOMMENDATIONS: We would continue low dose beta chemo with Toprol-XL 12.5 mg per day to aid in compliance. No other adjustments made. Recommend cardiology followup in 2 weeks' time.
[2016-11-19] MEDS ORDERED: DOXYCYCLINE HYCLATE 100 MG CAP PO SCH (21:00)
[2016-11-20 06:50] LABS: ESTIMATED AVERAGE GLUCOSE 105 mg/dl; HA1C FLAG Normal (Normal)
== END 2016-11-19 12:39 | disposition home or self-care (01) ==
LOC: ENRESERVTM → ENRESERVDT → C.EDB 21:21 → C.MED 11-19 00:49
PROVIDERS: ADMIT Family Medicine; ATTEND Family Medicine
DX: R07.89 Other chest pain (principal); R00.2 Palpitations; J06.9 Acute upper respiratory infection, unspecified; I48.0 Paroxysmal atrial fibrillation; I10 Essential (primary) hypertension; Z79.899 Other long term (current) drug therapy; Z79.82 Long term (current) use of aspirin; Z91.14 Patient's other noncompliance with medication regimen; Z82.49 Family history of ischemic heart disease and other diseases of the circulatory system